=== PATIENT | female | born 1980 | race Caucasian/White ===

== ENCOUNTER 2020-09-09 16:12 | Outpatient (CLI) | payer OTHER, SELFPAY ==
--- NOTE | 2020-09-09 16:24 | XR_ITS ---
WS: [id number] Chest 2 views, 09/09/2020 Clinical Data: SOMATIC DYSFUNCTION, RIB CAGE Comparison: Portable chest, 11/03/2002. Findings: No nodules, masses or effusions are seen. The heart is normal. The pulmonary vascularity is not increased. No pneumonia or pneumothorax is seen. XR/XR chest 2V* [id number] Impression: Negative chest.
== END 2020-09-09 16:13 | disposition home or self-care (01) ==
PROVIDERS: PCP Nurse Practitioner; Visit Provider Family Medicine
DX: R29.898 Other symptoms and signs involving the musculoskeletal system (principal); R07.89 Other chest pain
CPT/HCPCS: 71046

== ENCOUNTER → 2022-04-06 08:30 | Outpatient (BNVA) | payer OTHER, SELFPAY | PROVIDERS: PCP Family Medicine; Visit Provider Family Medicine | DX: K12.1 Other forms of stomatitis (principal); R53.83 Other fatigue; R68.84 Jaw pain; B37.0 Candidal stomatitis | CPT/HCPCS: 80053; 84436; 84443; 84481; 85025; 85651; 86140; 86160; 86162; 86235; 86255; 86376 ==

== ENCOUNTER → 2022-04-20 12:37 | Outpatient (BNVA) | payer OTHER, SELFPAY | PROVIDERS: PCP Family Medicine; Visit Provider Clinical Nurse Specialist Adult Health | DX: J02.9 Acute pharyngitis, unspecified (principal); B37.0 Candidal stomatitis; L50.9 Urticaria, unspecified; M25.50 Pain in unspecified joint | CPT/HCPCS: 87880 ==